=== PATIENT | female | born 1980 | race Caucasian/White ===

== ENCOUNTER 2024-07-20 09:40 | Emergency (ER) | payer OTHER ==
[2024-07-20 09:54] VITALS: BP 103/60; PULSE 96; RESP 16; TEMP 98.6; BMI 27.3
== END 2024-07-20 10:38 | disposition home or self-care (01) ==
LOC: SUPCPDRO 09:40 → FER 09:40
DX: R51.9 Headache, unspecified (principal); M54.2 Cervicalgia
CPT/HCPCS: 99283-25